=== PATIENT | female | born 1935 | race Caucasian/White ===

== ENCOUNTER 2020-08-03 07:33 | Outpatient (CLI) | payer MEDICARE ==
[2020-08-04] MEDS ORDERED: REGADENOSON 0.4 MG/5 ML SYRINGE ONE (11:56)
== END 2020-08-04 23:59 | disposition home or self-care (01) ==
LOC: CFH 07:33
PROVIDERS: ATTEND Internal Medicine Cardiovascular Disease
DX: I10 Essential (primary) hypertension (principal); R06.02 Shortness of breath
CPT/HCPCS: 78452; 93017; A9502; J2785